=== PATIENT | female | born 1960 | race Caucasian/White ===

== ENCOUNTER → 2016-08-27 16:49 | Outpatient (CLI) | payer BC ==
[2013-02-18 08:54] VITALS: BMI 35.5
[~2016-08-27 16:49] MED LIST: AMABELZ 0.5 MG1 EACH PO; BELVIQ PO; BENADRYL25 MG PO; IBUPROFEN600 MG PO; MELATONIN 3 MG1 TAB; MULTI-DAY VITAM1 TAB PO; PERCOCET 5-3251 TAB PO; PRILOSEC20 MG PO; PROZAC20 MG PO; ZESTRIL40 MG; [UNRECOGNIZED DRUG - OTHER]
[2016-09-03 09:15] VITALS: BMI 34.5
== END | disposition home or self-care (01) ==
LOC: D.MAMMO 08:30
DX: N63 Unspecified lump in breast (principal)

== ENCOUNTER 2016-09-03 07:00 | Day surgery (SDC) | payer BC ==
[2016-08-31 11:12] LABS: BASOPHILS 0.3 % (0.0-2.0); EOSINOPHILS 3.1 % (0-7); HEMATOCRIT 37.8 % (36.0-48.0); HEMOGLOBIN 12.7 g/dL (12-16); IMMATURE GRANULOCYTES 0.3 % (0-5); LYMPHOCYTES 34.4 % (15-50); MCH 29.7 pg (26.0-34.0); MCHC 33.6 g/dL (31.0-37.0); MCV 88.5 fL (80.0-100.0); MEAN PLATELET VOLUME 9.8 fL (7.4-10.4); MONOCYTES 8.5 % (2-11); NEUTROPHILS 53.4 % (40-80); PLATELET COUNT 294 10x3/uL (130-400); RBC 4.27 10x6/uL (4.00-5.40); WBC 7.8 10x3/uL (4.8-10.8)
[2016-08-31 11:18] LABS: ANION GAP 12.3 mmol/L (8-16); CALCIUM 8.9 mg/dL (8.5-10.1); CARBON DIOXIDE 27.1 mmol/L (21.0-32.0); CREATININE - SERUM 0.9 mg/dL (0.6-1.3); POTASSIUM - SERUM 4.4 mmol/L (3.5-5.1)
[~2016-09-03] VITALS: Ht 170.2 cm; Wt 99.8 kg
[~2016-09-03 07:00] MED LIST changes: -AMABELZ 0.5 MG1 EACH PO; -BELVIQ PO; -IBUPROFEN600 MG PO; -PERCOCET 5-3251 TAB PO
[2016-09-03] MEDS ORDERED: BELVIQ PO (09:08)
[2016-09-03] MEDS ORDERED: AMABELZ 0.5 MG1 EACH PO (09:09)
[2016-09-03 09:15] VITALS: BP 115/68; Ht 170.2 cm; Wt 99.8 kg
[2016-09-03 09:25] LABS: HCG URINE NEGATIVE (NEGATIVE)
[2016-09-03] MEDS ORDERED: IBUPROFEN600 MG PO (13:28)
[2016-09-03] MEDS ORDERED: PERCOCET 5-3251 TAB PO (13:30)
--- NOTE | 2016-09-03 14:57 | NUR ---
1425 AWAKE & ALERT, DRESSED. GIVEN DISCHARGE INSTRUCTION INFORMATION INCLUDING: MED REC., RX FOR IBUPROFEN 600MG, PERCOCET 5/325MG. MED REC, [facility] POST D&C SHEET & POST HYSTEROSCOPY SHEET, OPS D/C INSTRUCTIONS, D&C COMPUTER PRINTOUT, & RTC APPT.. PT VOICED UNDERSTANDING. TO PRIVATE CAR PER WHEELCHAIR BY VOLUNTEER. HOMW WITH . Ernesto DUNLAP R.N.
--- NOTE | 2016-09-21 13:40 | OP ---
PATIENT NAME: JEFFREY GOODEN MEDICAL RECORD: [id number] :56 LOCATION:D.OPS ADMISSION DATE: SURGEON: MARYANNE KAM MD DATE OF OPERATION: 09/03/2016 PREOPERATIVE DIAGNOSES: 1. Postmenopausal bleeding. 2. Thickened endometrial stripe POSTOPERATIVE DIAGNOSES: 1. Postmenopausal bleeding. 2. Thickened endometrial stripe. SURGEON: Maryanne Kam MD. ANESTHESIA: Laryngeal mask anesthesia with Mame Anders CRNA. PROCEDURE: Hysteroscopy with dilation and curettage. FINDINGS: Uterus sounded 7 cm patches of fluffy endometrial tissue as well as regions of atrophy noted within the endometrial cavity. A 3-4 mm endometrial polyp was also noted and removed. SPECIMENS: 1. Biopsy of endometrium, endometrial polyp. 2. Sharp and suction endometrial curettings. DESCRIPTION OF PROCEDURE: After informed consent was given, the patient was taken to the operating room where laryngeal mask anesthesia was placed and found to be adequate. She was placed in a dorsal lithotomy position in [facility]. She was prepped and draped sterilely including a vaginal prep. A Hoang catheter was placed with clear urine return noted. A bivalve speculum was then placed into the vagina. The cervix visualized and grasped anteriorly with a single toothed tenaculum. The uterus was then sounded sounding to 7 cm. The cervix was then dilated to 9 mm and a 9-mm operative hysteroscope was gently placed into the endometrial cavity. Findings were as listed above. Targeted biopsies were taken of the fluffy endometrial tissue around the endometrial cavity through the operative port. The biopsy grasper was then also used to remove the polyp located at the right posterior lateral aspect of the endometrial cavity. Once this was completed, the hysteroscope was removed. Sharp and suction curettage was then employed until a gritty texture was noted circumferentially within the endometrial cavity. At this point, the single-tooth tenaculum was removed and silver nitrate was used at the tenaculum sites with excellent hemostasis noted. The bivalve speculum was removed. The patient was returned to a supine position, awakened and taken into the recovery room in stable condition. The patient tolerated the procedure well. COUNTS: Sponge, lap and instrument counts were reported correct times 2. ESTIMATED BLOOD LOSS: Minimal. URINE OUTPUT: 200 cc. COMPLICATIONS: None. OPERATIVE REPORT [id number] JEFFREY GOODEN TRANSINT:[id number] Voice Confirmation ID: [id number] DOCUMENT ID: [id number] MARYANNE KAM MD at 1340 CC: [id number] DICTATION DATE: 09/03/16 121 [address] [place]LA[place]IER: 09/03/16 1542 [facility] 09/03/16 [place] [id number] [place] [phone]
== END 2016-09-03 14:25 | disposition home or self-care (01) ==
LOC: D.OPS 07:00 → D.PAN 09:00 → D.OPS 09:00
PROVIDERS: Specialist
DX: N95.0 Postmenopausal bleeding (principal); R93.8 Abnormal findings on diagnostic imaging of other specified body structures; N84.0 Polyp of corpus uteri

== ENCOUNTER 2018-12-23 16:30 | Outpatient (CLI) | payer BC ==
[2016-09-03 09:15] VITALS: BMI 34.5
[~2018-12-23 16:30] MED LIST changes: +AMABELZ 0.5 MG1 EACH PO; +BELVIQ PO; +IBUPROFEN600 MG PO; +PERCOCET 5-3251 TAB PO
== END 2018-12-23 17:00 | disposition home or self-care (01) ==
LOC: D.MAMMO 16:30
PROVIDERS: ATTEND Medical Genetics Clinical Genetics (M.D.)
DX: Z12.31 Encounter for screening mammogram for malignant neoplasm of breast (principal)

== ENCOUNTER 2020-09-28 14:30 | Outpatient (CLI) | payer BC ==
[2016-09-03 09:15] VITALS: BMI 34.5
== END 2020-09-28 23:59 | disposition home or self-care (01) ==
LOC: D.MAMMO 14:30
PROVIDERS: ATTEND Specialist
DX: Z12.31 Encounter for screening mammogram for malignant neoplasm of breast (principal)